=== PATIENT | male | born 1950 | race Caucasian/White ===

== ENCOUNTER 2016-05-05 10:31 | Emergency (ER) | payer OTHER, MEDICARE ==
--- NOTE | 2016-05-05 12:53 | DIAGNOSTIC IMAGING REPORT ---
PROCEDURE: XR CHEST 2 VIEW INDICATION: HEAVY SMOKER WITH DVTS TECHNIQUE: PA and lateral views. COMPARISON: None. FINDINGS: Lungs are clear. Heart and mediastinum are normal. Thorax is normal. IMPRESSION: 1. Negative chest.
--- NOTE | 2016-05-05 14:09 | ED CLINICAL REPORT ---
Clinical Report - Physicians/Mid Levels [facility] [address] [place] [address] 05/05/2016 10:32 Patient: RASHIDA ROB Time Seen: 11:19. Arrived- By private vehicle. Historian- patient. HISTORY OF PRESENT ILLNESS Chief Complaint: LOWER EXTREMITY PAIN. Severity is described as being .it has become recently worse. The quality is noted to be "pain". This started several days ago and is still present. It was gradual in onset and has been constant. Symptoms located in the area of the right leg. The patient has had moderate redness with red streaking. He has had mild swelling of the right lower leg. 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 He has been on warfarin for this. He also had an IVC filter placed in the past. Over the past several days he's had an area of redness on the inside of his right leg with extension up the medial aspect by his knee. He says that this is painful, describing a burning sensation. He was seen yesterday by a nurse practitioner who diagnosed him with superficial thrombophlebitis and apparently checked his INR and said that it was 2.5. However he says that the pain is worse. He denies chest pain no shortness of breath). Patient denies a recent injury. Similar symptoms previously: Many times. Recent medical care: The patient was seen recently at another facility in a clinic. Diagnosis: (superficial thrombophlebitis). REVIEW OF SYSTEMS No chills, fever, calf pain, chest pain or cough. No difficulty breathing, pedal edema, palpitations, abdominal pain or black stools. No bloody stools, constipation, diarrhea, nausea or vomiting. No urinary problems. All systems otherwise negative, except as recorded above. PAST HISTORY ( PCP Chris Mireles). Problems: DVT - Deep Venous Thrombosis. Lifestyle / Substance Problems. Additional Surgeries: Filter placed through groin for DVT. IVC filter placement. Knee Surgery. Shoulder Surgery. Medications: High chilesterol medication unkown of name . Warfarin Sodium Oral (Tablet 7.5 mg), daily. Allergies: No Known Drug Allergy. SOCIAL HISTORY No alcohol use. FAMILY HISTORY Denies family medical history. ADDITIONAL NOTES The nursing notes have been reviewed. PHYSICAL EXAM Vital Signs: 05/05/2016 10:57 BP: 122/77. HR: 65. RR: 18. O2 saturation: 97%. Temp: 98.5 F. Have been reviewed. Appearance: Alert. Eyes: Pupils equal, round and reactive to light. ENT: Pharynx normal. Neck: Normal inspection. Neck supple. CVS: Normal heart rate and rhythm. Heart sounds normal. Respiratory: No respiratory distress. Decreased air movement. No rales, rhonchi or wheezes. Abdomen: Soft and nontender. No organomegaly. Skin: Skin warm and dry. Extremities: Right thigh: moderate tenderness and mild swelling. Right leg: moderate erythema located in the medial aspect of upper leg. Mild edema of the right lower extremity. Mild right-sided calf tenderness. LABS, X-RAYS, AND EKG Laboratory Tests: CBC w Diff: (SKY: 05/05/2016 11:40) ( [facility] Final results Test Result Flag Units (Reference) WHITE BLOOD COUNT 7.7 K/uL (4.5-11.5) RED BLOOD COUNT 4.91 M/uL (4.50-5.90) HEMOGLOBIN 15.4 gm/dL (13.5-17.5) HEMATOCRIT 46.5 % (41.0-53.0) MEAN CELL VOLUME 95 fL (80-100) MEAN CORPUSCULAR HGB 31 pg (26-34) MEAN CORPUSCULAR HGB CONC 33 g/dL (31-37) RED CELL DISTRIBUTION WIDTH 14.2 % (11.6-14.8) PLATELET COUNT 151 K/uL (150-400) NEUTROPHIL % 67.3 % (50-75) LYMPH % 21.5 L % (25-40) MONO % 7.9 % (3-14) EOSINOPHIL % 2.5 % (0-4) BASOPHIL % 0.8 % (0-2) PT with INR: (SKY: 05/05/2016 11:40) ( [facility] 05/05/2016 12:08) Final results Test Result Flag Units (Reference) INR 2.1 H (0.8-1.2) Low Intensity Therapy: INR 1.5-2.0 PT range 18.5-23.1Mod.Intensity Therapy: INR 2.0-3.0 PT range 23.1-31.5High Intensity Therapy: INR 2.5-3.5 PT range 27.4-35.5High Intensity Therapy 2: INR 3.0-4.0 PT range 31.5-39.3 APTT 36 H SECONDS (24-34) CMP: (SKY: 05/05/2016 11:40) ( [facility] 05/05/2016 12:15) Final results Test Result Flag Units (Reference) GLUCOSE 108 mg/dL (70-110) BUN 14 mg/dL (7-18) CREATININE 0.9 mg/dL (0.6-1.3) Estimated GFR >60 mL/min Estimated GFR- >60 mL/min Note: Persistent reduction over 3 months in eGFR<60 mL/min/1.73 m2 defines CKD. Patients with eGFR values>=60 mL/min/1.73 m2 may also have CKD if evidence ofpersistent proteinuria. Additional information may be foundat www.kidney.org. SODIUM 141 mmol/L (136-145) POTASSIUM 3.9 mmol/L (3.5-5.1) CHLORIDE 105 mmol/L (98-107) CARBON DIOXIDE 26 mmol/L (21-32) CALCIUM 8.9 mg/dL (8.5-10.1) TOTAL PROTEIN 6.8 g/dL (6.4-8.2) ALBUMIN 3.6 g/dL (3.3-5.0) BILIRUBIN, TOTAL 0.3 mg/dL (0.0-1.0) ALKALINE PHOSPHATASE 60 U/L (46-116) AST (SGOT) 14 L U/L (15-37) ALT (SGPT) 24 U/L (12-78) . PROGRESS AND PROCEDURES Course of Care: Patient is stable. Discussed case with patient's primary care provider, (Aline). Reviewed test results and need for additional work-up. Agreed upon treatment plan and need for patient follow-up. Health care provider will see patient in office. Patient/family counseled. Old medical records reviewed. Disposition: Discharged. Condition: stable. CLINICAL IMPRESSION Deep venous thrombosis of the right proximal lower extremity. Superficial thrombophlebitis of the right leg. INSTRUCTIONS Apply ice for 20 minutes four times a day until better. Don't apply ice directly to skin and don't use while asleep. No driving or operating machinery while taking medication. Do not smoke- benefits of smoking cessation discussed (>3 -10 minutes). Seek medical help to quit smoking. (Discussed with Dr. Mccray whether or not she might benefit from being transitioned from warfarin to one of the newer anticoagulant medications as discussed). Warnings: Further evaluation is necessary. GENERAL WARNINGS: Return or contact your physician immediately if your condition worsens or changes unexpectedly, if not improving as expected, or if other problems arise. Your Current Medications: CONTINUE TAKING THE FOLLOWING MEDICATIONS: High chilesterol medication unkown of name *. Warfarin Sodium Oral : Tablet 7.5 mg, daily. Prescription Medications: Ultram 50 mg: take 1-2 orally every 6 hours as needed for pain. Dispense fifteen (15). No refills. Substitution is permissible. Understanding of the discharge instructions verbalized by patient and family. Follow-up with: Merrick Mireles MD, [facility], , [address], [address] Follow up Sunday in three days. Call for an appointment. (Electronically signed by Juan Jose Bates MD 05/05/2016 15:19)
--- NOTE | 2016-05-05 14:09 | ED CLINICAL REPORT ---
Clinical Report - Physicians/Mid Levels [facility] [address] [place] [address] 05/05/2016 10:32 Patient: RASHIDA ROB Time Seen: 11:19. Arrived- By private vehicle. Historian- patient. HISTORY OF PRESENT ILLNESS Chief Complaint: LOWER EXTREMITY PAIN. Severity is described as being .it has become recently worse. The quality is noted to be "pain". This started several days ago and is still present. It was gradual in onset and has been constant. Symptoms located in the area of the right leg. The patient has had moderate redness with red streaking. He has had mild swelling of the right lower leg. 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 He has been on warfarin for this. He also had an IVC filter placed in the past. Over the past several days he's had an area of redness on the inside of his right leg with extension up the medial aspect by his knee. He says that this is painful, describing a burning sensation. He was seen yesterday by a nurse practitioner who diagnosed him with superficial thrombophlebitis and apparently checked his INR and said that it was 2.5. However he says that the pain is worse. He denies chest pain no shortness of breath). Patient denies a recent injury. Similar symptoms previously: Many times. Recent medical care: The patient was seen recently at another facility in a clinic. Diagnosis: (superficial thrombophlebitis). REVIEW OF SYSTEMS No chills, fever, calf pain, chest pain or cough. No difficulty breathing, pedal edema, palpitations, abdominal pain or black stools. No bloody stools, constipation, diarrhea, nausea or vomiting. No urinary problems. All systems otherwise negative, except as recorded above. PAST HISTORY ( PCP Chris Mireles). Problems: DVT - Deep Venous Thrombosis. Lifestyle / Substance Problems. Additional Surgeries: Filter placed through groin for DVT. IVC filter placement. Knee Surgery. Shoulder Surgery. Medications: High chilesterol medication unkown of name . Warfarin Sodium Oral (Tablet 7.5 mg), daily. Allergies: No Known Drug Allergy. SOCIAL HISTORY No alcohol use. FAMILY HISTORY Denies family medical history. ADDITIONAL NOTES The nursing notes have been reviewed. PHYSICAL EXAM Vital Signs: 05/05/2016 10:57 BP: 122/77. HR: 65. RR: 18. O2 saturation: 97%. Temp: 98.5 F. Have been reviewed. Appearance: Alert. Eyes: Pupils equal, round and reactive to light. ENT: Pharynx normal. Neck: Normal inspection. Neck supple. CVS: Normal heart rate and rhythm. Heart sounds normal. Respiratory: No respiratory distress. Decreased air movement. No rales, rhonchi or wheezes. Abdomen: Soft and nontender. No organomegaly. Skin: Skin warm and dry. Extremities: Right thigh: moderate tenderness and mild swelling. Right leg: moderate erythema located in the medial aspect of upper leg. Mild edema of the right lower extremity. Mild right-sided calf tenderness. LABS, X-RAYS, AND EKG Laboratory Tests: CBC w Diff: (SKY: 05/05/2016 11:40) ( [facility] Final results Test Result Flag Units (Reference) WHITE BLOOD COUNT 7.7 K/uL (4.5-11.5) RED BLOOD COUNT 4.91 M/uL (4.50-5.90) HEMOGLOBIN 15.4 gm/dL (13.5-17.5) HEMATOCRIT 46.5 % (41.0-53.0) MEAN CELL VOLUME 95 fL (80-100) MEAN CORPUSCULAR HGB 31 pg (26-34) MEAN CORPUSCULAR HGB CONC 33 g/dL (31-37) RED CELL DISTRIBUTION WIDTH 14.2 % (11.6-14.8) PLATELET COUNT 151 K/uL (150-400) NEUTROPHIL % 67.3 % (50-75) LYMPH % 21.5 L % (25-40) MONO % 7.9 % (3-14) EOSINOPHIL % 2.5 % (0-4) BASOPHIL % 0.8 % (0-2) PT with INR: (SKY: 05/05/2016 11:40) ( [facility] 12:08) Final results Test Result Flag Units (Reference) INR 2.1 H (0.8-1.2) Low Intensity Therapy: INR 1.5-2.0 PT range 18.5-23.1Mod.Intensity Therapy: INR 2.0-3.0 PT range 23.1-31.5High Intensity Therapy: INR 2.5-3.5 PT range 27.4-35.5High Intensity Therapy 2: INR 3.0-4.0 PT range 31.5-39.3 APTT 36 H SECONDS (24-34) CMP: (SKY: 05/05/2016 11:40) ( MsgRcvd 05/05/2016 12:15) Final results Test Result Flag Units (Reference) GLUCOSE 108 mg/dL (70-110) BUN 14 mg/dL (7-18) CREATININE 0.9 mg/dL (0.6-1.3) Estimated GFR >60 mL/min Estimated GFR- >60 mL/min Note: Persistent reduction over 3 months in eGFR<60 mL/min/1.73 m2 defines CKD. Patients with eGFR values>=60 mL/min/1.73 m2 may also have CKD if evidence ofpersistent proteinuria. Additional information may be foundat www.kidney.org. SODIUM 141 mmol/L (136-145) POTASSIUM 3.9 mmol/L (3.5-5.1) CHLORIDE 105 mmol/L (98-107) CARBON DIOXIDE 26 mmol/L (21-32) CALCIUM 8.9 mg/dL (8.5-10.1) TOTAL PROTEIN 6.8 g/dL (6.4-8.2) ALBUMIN 3.6 g/dL (3.3-5.0) BILIRUBIN, TOTAL 0.3 mg/dL (0.0-1.0) ALKALINE PHOSPHATASE 60 U/L (46-116) AST (SGOT) 14 L U/L (15-37) ALT (SGPT) 24 U/L (12-78) . PROGRESS AND PROCEDURES Course of Care: Patient is stable. Discussed case with patient's primary care provider, (Aline). Reviewed test results and need for additional work-up. Agreed upon treatment plan and need for patient follow-up. Health care provider will see patient in office. Patient/family counseled. Old medical records reviewed. Disposition: Discharged. Condition: stable. CLINICAL IMPRESSION Deep venous thrombosis of the right proximal lower extremity. Superficial thrombophlebitis of the right leg. INSTRUCTIONS Apply ice for 20 minutes four times a day until better. Don't apply ice directly to skin and don't use while asleep. No driving or operating machinery while taking medication. Do not smoke- benefits of smoking cessation discussed (>3 -10 minutes). Seek medical help to quit smoking. (Discussed with Dr. Mccray whether or not she might benefit from being transitioned from warfarin to one of the newer anticoagulant medications as discussed). Warnings: Further evaluation is necessary. GENERAL WARNINGS: Return or contact your physician immediately if your condition worsens or changes unexpectedly, if not improving as expected, or if other problems arise. Your Current Medications: CONTINUE TAKING THE FOLLOWING MEDICATIONS: High chilesterol medication unkown of name *. Warfarin Sodium Oral : Tablet 7.5 mg, daily. Prescription Medications: Ultram 50 mg: take 1-2 orally every 6 hours as needed for pain. Dispense fifteen (15). No refills. Substitution is permissible. Understanding of the discharge instructions verbalized by patient and family. Follow-up with: Mrerick Mireles MD, [facility], , [address], [address] Follow up Sunday in three days. Call for an appointment. (Electronically signed by Juan Jose Bates MD 05/05/2016 15:19)
--- NOTE | 2016-05-05 14:10 | ED ORDER SUMMARY ---
..... Patient: RASHIDA ROB OrderSheet [facility] VisitID: [id number] [place] [address] 65y, M Registration Date/Time: 05/05/2016 ORDER SHEET Weight: 78.0 kg (stated) Allergies: No Known Drug Allergy GENERAL ORDERS: US Venous Right Urgent (11:30 05/05/2016 Karolyn HANEY) (Ack 11:34 Beatris) (16:06 LWhalen R.N.) CBC w Diff Urgent (11:05/05/2016 Karolyn HANEY) (Ack 11:34 Beatris) (11:38 KKnebel R.N.) CMP Urgent (11:05/05/2016 Karolyn HANEY) (Ack 11:34 Beatris) (11:38 KKnebel R.N.) PT with INR Urgent (11:05/05/2016 Karolyn HANEY) (Ack 11:34 Beatris) (11:38 EMMANUELnebel R.N.) PTT Urgent (11:05/05/2016 Karolyn HANEY) (Ack 11:34 Beatris) (11:38 EMMANUELnebel R.N.) Chest 2V Urgent (12:29 05/05/2016 Karolyn HANEY) (Ack 12:38 Beatris) (16:06 LWhalyadira R.N.) MEDICATION ORDERS: IV FLUIDS: IV Saline Lock (11:05/05/2016 Karolyn HANEY) (11:38 Angel R.N.) ORDER SHEET NOTES: [Electronically signed by Juan Jose Bates MD (15:19 05/05/2016)] [Electronically signed by Cory Costa R.N. (16:07 05/05/2016)] [Electronically locked/signed by Cory Costa R.N. (16:05/05/2016)]
--- NOTE | 2016-05-05 14:10 | ED NURSING NOTES ---
Clinical Report - Nurses [facility] [address] [place] [address] 05/05/2016 10:32 [id number] Triage time 10:59 May 05 2016. Acuity: LEVEL 3. Chief Complaint: RIGHT LOWER EXTREMITY PAIN, SWELLING and REDNESS. HELENE COMA SCORE: Helene Coma Scale: 15- eyes open spontaneously (4); best verbal response- oriented x 4 (5); best motor response- obeys commands (6). --11:05 Cory Costa R.N. 10:57 05/05/16. BP: 122/77. HR: 65. RR: 18. O2 saturation: 97%. Temp: 98.5 F. Pain level now 9/10. --11:05 Cory Costa R.N. Weight: 78 kg stated. Height/Length: 74 inches Per Patient. BMI: 22.1. --10:59 Cory Costa R.N. Medications Warfarin Sodium Oral (Tablet 7.5 mg), daily. --11:02 Cory Costa R.N. High chilesterol medication unkown of name . --11:03 Cory Costa R.N. Allergies No Known Drug Allergy. --11:03 Cory Costa R.N. History Arrived by private vehicle. Historian: patient. Primary physician (). No injury occurred. This occurred yesterday. ( Was diagnosed in the office yesterday with a DVT. The spot in question reddened over night and has became very painful with a red line coming from it and was told to go to the ER.). He has had swelling and redness. No fever, difficulty breathing, skin rash, itching or trouble walking. No weakness. 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 PAST MEDICAL HX: Deep vein thrombosis. Tetanus status: unknown. Immunizations: up-to-date. SOCIAL HX: Current every day heavy tobacco smoker- 1 pack per day. History of drug use: marijuana. No alcohol use. No infectious disease exposure. SELF HARM ASSESSMENT: A self harm assessment was performed. The patient answered "no" to the question "Have you recently felt down, depressed, or hopeless?" and "Do you have thoughts of harming or killing yourself?". FALL RISK ASSESSMENT: Fall risk assessment completed. No fall risk identified. NUTRITIONAL RISK ASSESSMENT: The nutritional risk assessment revealed no deficiencies. FUNCTIONAL ASSESSMENT: Functional assessment: no impairments noted. LEARNING NEEDS ASSESSMENT: The learning needs assessment revealed no barriers. ABUSE ASSESSMENT: Abuse assessment: (yes) The patient was asked "Do you feel safe in your home?". SKIN INTEGRITY ASSESSMENT: Skin integrity risk assessment completed. No skin integrity risk identified. --11:05 Cory Costa R.N. PROBLEMS: Lifestyle / Substance Problems. --11:04 Cory Costa R.N. ADDITIONAL SURGERIES: Filter placed through groin for DVT. Knee Surgery. Shoulder Surgery. --11:04 Cory Costa R.N. Interventions ID band on patient. --11:05 Cory Costa R.N. PHYSICAL ASSESSMENT Ambulatory to room. GENERAL / NEURO / PSYCH: Oriented X 4. Alert. Appears in no acute distress. EXTREMITIES: Extremity pulses are within normal limits. Extremities exhibit normal ROM. Neuro-vascular status intact to the extremity. No lower extremity edema. Right leg: tenderness, swelling and erythema. ( Limping gait r/t pain). SKIN: Skin intact. Skin is warm and dry. --11:06 Cory Costa R.N. NURSING PROGRESS NOTES The initial plan of care for this patient includes an assessment with efforts to address patient positioning and appropriate ambient lighting; mobility impairments. Pulse oximeter and NIBP monitor placed on patient. Reassurance given. Call light placed in reach. Side rails up x 1. Bed placed in lowest position. Brakes of bed on. --11:06 Cory Costa R.N. 11:37 05/05/2016 Site #1 started via IV in the right antecubital space with an 20g angiocath, with good blood return; one attempt. Blood drawn: rainbow set. Labeled in the presence of the patient and sent to the lab. Saline lock flushed with 10 mL saline. --11:37 Jolanta Gonsalez R.N. Patient walked back to ED from radiology. (12:39 May 05 2016). --12:40 Jolanta Gonsalez R.N. 12:39 05/05/16. BP: 124/70. HR: 65. O2 saturation: 96%. Pain level now: 10. --12:40 Jolanta Gonsalez R.N. 14:00 05/05/2016 IV Saline Lock Drip IV Discontinued: upon discharge. IV patency established. IV site checked: no pain, redness, or swelling. IV flushed thoroughly. --16:06 Cory Costa R.N. DISPOSITION / DISCHARGE Departure time: 14:30 May 05 2016. Condition at departure: improved. No learning barriers present. Discharge instructions provided and reviewed with the patient. Reviewed warnings. Reviewed medication(s). Treatments reviewed. Reviewed referrals. Patient verbalized understanding. Written instructions provided in Polish. The patient was discharged home and accompanied by compliance project manager. He left the Emergency Department ambulatory and via private vehicle. Desizing Machine Back Tender driving. --16:05 Cory Costa R.N. 16:04 05/05/16. BP: 118/72. HR: 84. RR: 18. O2 saturation: 98%. Temp: 98.6 F. Pain level now 10. --16:05 Cory Costa R.N. Locked/Released at 05/05/2016 16:07 by Cory Costa R.N.
--- NOTE | 2016-05-05 14:10 | ED NURSING NOTES ---
Clinical Report - Nurses [facility] [address] [place] [address] 05/05/2016 10:32 Patient: RASHIDA ROB [place] Llct#: [id number] TRIAGE Triage time 10:59 May 05 2016. Acuity: LEVEL 3. Chief Complaint: RIGHT LOWER EXTREMITY PAIN, SWELLING and REDNESS. HELENE COMA SCORE: Helene Coma Scale: 15- eyes open spontaneously (4); best verbal response- oriented x 4 (5); best motor response- obeys commands (6). --11:05 Cory Costa R.N. 10:57 05/05/16. BP: 122/77. HR: 65. RR: 18. O2 saturation: 97%. Temp: 98.5 F. Pain level now 9/10. --11:05 Cory Costa R.N. Weight: 78 kg stated. Height/Length: 74 inches Per Patient. BMI: 22.1. --10:59 Cory Costa R.N. Medications Warfarin Sodium Oral (Tablet 7.5 mg), daily. --11:02 Cory Costa R.N. High chilesterol medication unkown of name . --11:03 Cory Costa R.N. Allergies No Known Drug Allergy. --11:03 Cory Costa R.N. History Arrived by private vehicle. Historian: patient. Primary physician (). No injury occurred. This occurred yesterday. ( Was diagnosed in the office yesterday with a DVT. The spot in question reddened over night and has became very painful with a red line coming from it and was told to go to the ER.). He has had swelling and redness. No fever, difficulty breathing, skin rash, itching or trouble walking. No weakness. 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 PAST MEDICAL HX: Deep vein thrombosis. Tetanus status: unknown. Immunizations: up-to-date. SOCIAL HX: Current every day heavy tobacco smoker- 1 pack per day. History of drug use: marijuana. No alcohol use. No infectious disease exposure. SELF HARM ASSESSMENT: A self harm assessment was performed. The patient answered "no" to the question "Have you recently felt down, depressed, or hopeless?" and "Do you have thoughts of harming or killing yourself?". FALL RISK ASSESSMENT: Fall risk assessment completed. No fall risk identified. NUTRITIONAL RISK ASSESSMENT: The nutritional risk assessment revealed no deficiencies. FUNCTIONAL ASSESSMENT: Functional assessment: no impairments noted. LEARNING NEEDS ASSESSMENT: The learning needs assessment revealed no barriers. ABUSE ASSESSMENT: Abuse assessment: (yes) The patient was asked "Do you feel safe in your home?". SKIN INTEGRITY ASSESSMENT: Skin integrity risk assessment completed. No skin integrity risk identified. --11:05 Cory Costa R.N. PROBLEMS: Lifestyle / Substance Problems. --11:04 Cory Costa R.N. ADDITIONAL SURGERIES: Filter placed through groin for DVT. Knee Surgery. Shoulder Surgery. --11:04 Cory Costa R.N. Interventions ID band on patient. --11:05 Cory Costa R.N. PHYSICAL ASSESSMENT Ambulatory to room. GENERAL / NEURO / PSYCH: Oriented X 4. Alert. Appears in no acute distress. EXTREMITIES: Extremity pulses are within normal limits. Extremities exhibit normal ROM. Neuro-vascular status intact to the extremity. No lower extremity edema. Right leg: tenderness, swelling and erythema. ( Limping gait r/t pain). SKIN: Skin intact. Skin is warm and dry. --11:06 Cory Costa R.N. NURSING PROGRESS NOTES The initial plan of care for this patient includes an assessment with efforts to address patient positioning and appropriate ambient lighting; mobility impairments. Pulse oximeter and NIBP monitor placed on patient. Reassurance given. Call light placed in reach. Side rails up x 1. Bed placed in lowest position. Brakes of bed on. --11:06 Cory Costa R.N. 11:37 05/05/2016 Site #1 started via IV in the right antecubital space with an 20g angiocath, with good blood return; one attempt. Blood drawn: rainbow set. Labeled in the presence of the patient and sent to the lab. Saline lock flushed with 10 mL saline. --11:37 Jolanta Gonsalez R.N. Patient walked back to ED from radiology. (12:39 May 05 2016). --12:40 Jolanta Gonsalez R.N. 12:39 05/05/16. BP: 124/70. HR: 65. O2 saturation: 96%. Pain level now: 10. --12:40 Jolanta Gonsalez R.N. 14:00 05/05/2016 IV Saline Lock Drip IV Discontinued: upon discharge. IV patency established. IV site checked: no pain, redness, or swelling. IV flushed thoroughly. --16:06 Cory Costa R.N. DISPOSITION / DISCHARGE Departure time: 14:30 May 05 2016. Condition at departure: improved. No learning barriers present. Discharge instructions provided and reviewed with the patient. Reviewed warnings. Reviewed medication(s). Treatments reviewed. Reviewed referrals. Patient verbalized understanding. Written instructions provided in Italian. The patient was discharged home and accompanied by stave log ripsaw operator. He left the Emergency Department ambulatory and via private vehicle. Diabetes Territory Manager driving. --16:05 Cory Costa R.N. 16:04 05/05/16. BP: 118/72. HR: 84. RR: 18. O2 saturation: 98%. Temp: 98.6 F. Pain level now 10. --16:05 Cory Costa R.N. Locked/Released at 05/05/2016 16:07 by Cory Costa R.N.
--- NOTE | 2016-05-05 14:10 | ED ORDER SUMMARY ---
..... Patient: RASHIDA ROB OrderSheet [facility] VisitID: [id number] [place] [address] 65y, M Registration Date/Time: 05/05/2016 ORDER SHEET Weight: 78.0 kg (stated) Allergies: No Known Drug Allergy GENERAL ORDERS: US Venous Right Urgent (11:30 05/05/2016 Karolyn HANEY) (Ack 11:34 Beatris) (16:06 LWhalen R.N.) CBC w Diff Urgent (11:05/05/2016 Karolyn HANEY) (Ack 11:34 Beatris) (11:38 KKnebel R.N.) CMP Urgent (11:05/05/2016 Karolyn HANEY) (Ack 11:34 Beatris) (11:38 KKnebel R.N.) PT with INR Urgent (11:05/05/2016 Karolyn HANEY) (Ack 11:34 Beatris) (11:38 EMMANUELnebel R.N.) PTT Urgent (11:05/05/2016 Karolyn HANEY) (Ack 11:34 Beatris) (11:38 EMMANUELnebel R.N.) Chest 2V Urgent (12:29 05/05/2016 Karolyn HANEY) (Ack 12:38 Beatris) (16:06 LWhalyadira R.N.) MEDICATION ORDERS: IV FLUIDS: IV Saline Lock (11:05/05/2016 Karolyn HANEY) (11:38 Angel R.N.) ORDER SHEET NOTES: [Electronically signed by Juan Jose Bates MD (15:19 05/05/2016)] [Electronically signed by Cory Costa R.N. (16:07 05/05/2016)] [Electronically locked/signed by Cory Costa R.N. (16:05/05/2016)]
--- NOTE | 2016-05-05 14:49 | DIAGNOSTIC IMAGING REPORT ---
PROCEDURE: US VENOUS - RIGHT EXT INDICATION: PAIN TECHNIQUE: Duplex sonography of the deep venous system in the right lower extremity was performed. Compression and augmentation techniques were used. COMPARISON: 09/21/2011 FINDINGS: The common femoral vein and proximal greater saphenous vein appear compressible and patent with appropriate phasicity and color flow. There is chronic-appearing nonocclusive clot and is diminutive superficial femoral vein for a nearly the entire segment. 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 Popliteal vein is widely patent with normal augmentation. In the patient's area of calf redness and pain, there are enlarged, lobulated subcutaneous heterogeneously hypoechoic varices with intrinsic echogenic material which is noncompressible. There is no vascular flow detected within this structures. Deep calf veins appear patent. IMPRESSION: 1. 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 2. 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 3. The patient's area of pain corresponds to occlusive superficial thrombophlebitis in a varicosity.
--- NOTE | 2016-05-05 16:07 | ED DISCHARGE INSTRUCTIONS ---
Patient: RASHIDA ROB General Instructions VisitID: [id number] [place] [address] 65y, M Registration Date/Time: 05/05/2016 Deep venous thrombosis of the right proximal lower extremity. Superficial thrombophlebitis of the right leg. INSTRUCTIONS Apply ice for 20 minutes four times a day until better. Don't apply ice directly to skin and don't use while asleep. No driving or operating machinery while taking medication. Do not smoke- benefits of smoking cessation discussed (>3 -10 minutes). Seek medical help to quit smoking. (Discussed with Dr. Mccray whether or not she might benefit from being transitioned from warfarin to one of the newer anticoagulant medications as discussed). Warnings: Further evaluation is necessary. GENERAL WARNINGS: Return or contact your physician immediately if your condition worsens or changes unexpectedly, if not improving as expected, or if other problems arise. Your Current Medications: CONTINUE TAKING THE FOLLOWING MEDICATIONS: High chilesterol medication unkown of name *. Warfarin Sodium Oral : Tablet 7.5 mg, daily. Prescription Medications: Ultram 50 mg: take 1-2 orally every 6 hours as needed for pain. Dispense fifteen (15). No refills. Substitution is permissible. Understanding of the discharge instructions verbalized by patient and family. Follow-up with: Merrick Mireles MD, [facility], , [address], [address], [place], [address] Follow up Sunday in three days. Call for an appointment. ADDITIONAL INFORMATION Deep Vein Thrombosis Deep Vein Thrombosis (DVT) means there is a blood clot in a deep vein of the leg. This may cause redness, swelling, warmth and pain of the leg. If the blood clot grows larger, a piece may break off and go to the lungs (pulmonary embolus) or to the brain (stroke). Factors that increase risk of a DVT include: overweight, smoking, use of estrogen replacement therapy. Prolonged periods without movement (such as long distance travel, wearing a fracture cast, and prolonged bed rest after surgery or during an illness) also increases the risk of a DVT. Home Care: Stay off the affected leg as much as possible during the next week. When sitting or lying down, keep the leg elevated. Compression stockings may be advised to improve blood flow in the lower legs. When resting, move your ankles, toes and knees frequently to stimulate blood flow. You will be prescribed an anti-coagulant medicine (pills or shots). Take it exactly as directed. Follow Up with your doctor as advised. NOTE: A radiologist will review any X-rays that were taken. We will notify you of any new findings that may affect your care. Get Prompt Medical Attention if any of the following occur: Shortness of breath or painful breathing Chest pain, repeated cough or coughing up blood Fever of 100.4F (38C) or higher, or as directed by your healthcare provider Increasing swelling or increasing pain in the leg Spreading redness Unexpected bleeding (nose, gums, cuts, urinary tract, vagina, rectum) Phlebitis, Superficial Phlebitis is the name for inflammation of a vein. This results in local redness, swelling, warmth and pain. This may occur after medicine has been given by vein as a result of the irritating effect of the medicine. It can also occur as a result of IV drug use. Superficial phlebitis involves only those veins close to the surface. There is no danger of a clot traveling to the lung or brain, unlike deep blood clots of the legs. Therefore, this condition can be safely treated at home. Home Care: Heat is helpful. Use a heating pad or soak the inflamed part in a hot tub for 10 minutes at a time. You may use ibuprofen (Motrin, Advil) to control pain, unless another medicine was prescribed. [ NOTE : If you have chronic kidney disease or ever had a stomach ulcer or GI bleeding, talk with your doctor before using these medicines.] If Your Leg Is Affected: Unless pain is severe, you may walk. It is important to sit often and elevate the leg. Avoid prolonged sitting or standing. Use support hose or an elastic wrap to compress the leg and reduce swelling. If Your Arm Is Affected: Elevate the arm. If you were given a sling, take your arm out from time to time and move it around to increase the circulation. Use an elastic wrap if there is a lot of swelling. Follow Up with your doctor as advised. Get Prompt Medical Attention if any of the following occur: Shortness of breath or painful breathing Chest pain or cough Fever of 100.4F (38C) or higher, or as directed by your healthcare provider Increasing swelling or pain Spreading redness How To Quit Smoking Smoking is one of the hardest habits to break. About half of all those who have ever smoked have been able to quit, and most of those (about 70%) who still smoke want to quit. Here are some of the best ways to stop smoking. Keep Trying: It takes most smokers about 8 tries before they are finally able to fully quit. So, the more often you try and fail, the better your chance of quitting the next time! So, don't give up! Go Cold [place]: Most ex-smokers quit cold turkey. Trying to cut back gradually doesn't seem to work as well, perhaps because it continues the smoking habit. Also, it is possible to fool yourself by inhaling more while smoking fewer cigarettes. This results in the same amount of nicotine in your body! Get Support: Support programs can make an important difference, especially for the heavy smoker. These groups offer lectures, methods to change your behavior and peer support. Call the free national Quitline for more information. 484-RGGR-SRI (661-060-3893). Low-cost or free programs are offered by many hospitals, local chapters of the [place] [employer] (805-220-6265) and the [employer] (318-351-5714). Support at home is important too. Non-smokers can help by offering praise and encouragement. If the smoker fails to quit, encourage them to try again! Kkhz-Urv-Blrewmh Medicines: For those who can't quit on their own, Nicotine Replacement Therapy (NRT) may make quitting much easier. Certain aids such as the nicotine patch, gum and lozenge are available without a prescription. However, it is best to use these under the guidance of your doctor. The skin patch provides a steady supply of nicotine to the body. Nicotine gum and lozenge gives temporary bursts of low levels of nicotine. Both methods take the edge off the craving for cigarettes. WARNING: If you feel symptoms of nicotine overdose, such as nausea, vomiting, dizziness, weakness, or fast heartbeat, stop using these and see your doctor. Prescription Medicines: After evaluating your smoking patterns and prior attempts at quitting, your doctor may offer a prescription medicine such as bupropion (Zyban, Wellbutrin), varenicline (Chantix, Champix), a niocotine inhaler or nasal spray. Each has its unique advantage and side effects which your doctor can review with you. Health Benefits Of Quitting: The benefits of quitting start right away and keep improving the longer you go without smokin minutes: blood pressure and pulse return to normal 8 hours: oxygen levels return to normal 2 days: ability to smell and taste begins to improve as damaged nerves start to regrow 2-3 weeks: circulation and lung function improves 1-9 months: decreased cough, congestion and shortness of breath; less tired 1 year: risk of heart attack decreases by half 5 years: risk of lung cancer decreases by half; risk of stroke becomes the same as a non-smoker For information about how to quit smoking, visit the following links: National Cancer Reva , Clearing the Air, Quit Smoking Today - an online booklet. http://www.smokefree.gov/pubs/clearing_the_air.pdf Smokefree.gov http://smokefree.gov/ QuitNet http://www.quitnet.com/ Tramadol Hydrochloride Oral tablet What is this medicine? TRAMADOL (TRA ma dole) is a pain reliever. It is used to treat moderate to severe pain in adults. How should I use this medicine? Take this medicine by mouth with a full glass of water. Follow the directions on the prescription label. If the medicine upsets your stomach, take it with food or milk. Do not take more medicine than you are told to take. Talk to your rivet hole machine operator regarding the use of this medicine in children. Special care may be needed. What side effects may I notice from receiving this medicine? Side effects that you should report to your doctor or health rn coronary care unit as soon as possible: allergic reactions like skin rash, itching or hives, swelling of the face, lips, or tongue breathing difficulties, wheezing confusion itching light headedness or fainting spells redness, blistering, peeling or loosening of the skin, including inside the mouth seizures Side effects that usually do not require medical attention (report to your doctor or health rn coronary care unit if they continue or are bothersome): constipation dizziness drowsiness headache nausea, vomiting What may interact with this medicine? Do not take this medicine with any of the following medications: MAOIs like Carbex, Eldepryl, Marplan, Nardil, and Parnate This medicine may also interact with the following medications: alcohol or medicines that contain alcohol antihistamines benzodiazepines bupropion carbamazepine or oxcarbazepine clozapine cyclobenzaprine digoxin furazolidone linezolid medicines for depression, anxiety, or psychotic disturbances medicines for migraine headache like almotriptan, eletriptan, frovatriptan, naratriptan, rizatriptan, sumatriptan, zolmitriptan medicines for pain like pentazocine, buprenorphine, butorphanol, meperidine, nalbuphine, and propoxyphene medicines for sleep muscle relaxants naltrexone phenobarbital phenothiazines like perphenazine, thioridazine, chlorpromazine, mesoridazine, fluphenazine, prochlorperazine, promazine, and trifluoperazine procarbazine warfarin What if I miss a dose? If you miss a dose, take it as soon as you can. If it is almost time for your next dose, take only that dose. Do not take double or extra doses. Where should I keep my medicine? Keep out of the reach of children. Store at room temperature between 15 and 30 degrees C (59 and 86 degrees F). Keep container tightly closed. Throw away any unused medicine after the expiration date. What should I tell my health care provider before I take this medicine? They need to know if you have any of these conditions: brain tumor depression drug abuse or addiction head injury if you frequently drink alcohol containing drinks kidney disease or trouble passing urine liver disease lung disease, asthma, or breathing problems seizures or epilepsy suicidal thoughts, plans, or attempt; a previous suicide attempt by you or a family member an unusual or allergic reaction to tramadol, codeine, other medicines, foods, dyes, or preservatives or trying to get breast-feeding What should I watch for while using this medicine? Tell your doctor or health rn coronary care unit if your pain does not go away, if it gets worse, or if you have new or a different type of pain. You may develop tolerance to the medicine. Tolerance means that you will need a higher dose of the medicine for pain relief. Tolerance is normal and is expected if you take this medicine for a long time. Do not suddenly stop taking your medicine because you may develop a severe reaction. Your body becomes used to the medicine. This does NOT mean you are addicted. Addiction is a behavior related to getting and using a drug for a non-medical reason. If you have pain, you have a medical reason to take pain medicine. Your doctor will tell you how much medicine to take. If your doctor wants you to stop the medicine, the dose will be slowly lowered over time to avoid any side effects. You may get drowsy or dizzy. Do not drive, use machinery, or do anything that needs mental alertness until you know how this medicine affects you. Do not stand or sit up quickly, especially if you are an older patient. This reduces the risk of dizzy or fainting spells. Alcohol can increase or decrease the effects of this medicine. Avoid alcoholic drinks. You may have constipation. Try to have a bowel movement at least every 2 to 3 days. If you do not have a bowel movement for 3 days, call your doctor or health rn coronary care unit. Your mouth may get dry. Chewing sugarless gum or sucking hard candy, and drinking plenty of water may help. Contact your doctor if the problem does not go away or is severe. You have been given the following additional information: DVT Thrombophlebitis, Superficial Smoking Cessation Tramadol Hydrochloride Oral tablet No driving or operating machinery while taking medication. (Electronically signed by Juan Jose Bates MD 05/05/2016 15:19)
--- NOTE | 2016-05-05 16:07 | ED DISCHARGE INSTRUCTIONS ---
Patient: RASHDIA ROB General Instructions [facility] VisitID: [id number] [place] [address] 65y, M Registration Date/Time: 05/05/2016 Deep venous thrombosis of the right proximal lower extremity. Superficial thrombophlebitis of the right leg. INSTRUCTIONS Apply ice for 20 minutes four times a day until better. Don't apply ice directly to skin and don't use while asleep. No driving or operating machinery while taking medication. Do not smoke- benefits of smoking cessation discussed (>3 -10 minutes). Seek medical help to quit smoking. (Discussed with Dr. Mccray whether or not she might benefit from being transitioned from warfarin to one of the newer anticoagulant medications as discussed). Warnings: Further evaluation is necessary. GENERAL WARNINGS: Return or contact your physician immediately if your condition worsens or changes unexpectedly, if not improving as expected, or if other problems arise. Your Current Medications: CONTINUE TAKING THE FOLLOWING MEDICATIONS: High chilesterol medication unkown of name *. Warfarin Sodium Oral : Tablet 7.5 mg, daily. Prescription Medications: Ultram 50 mg: take 1-2 orally every 6 hours as needed for pain. Dispense fifteen (15). No refills. Substitution is permissible. Understanding of the discharge instructions verbalized by patient and family. Follow-up with: Merrick Mireles MD, [facility], , [address], [address], [place], [address] Follow up Sunday in three days. Call for an appointment. ADDITIONAL INFORMATION Deep Vein Thrombosis Deep Vein Thrombosis (DVT) means there is a blood clot in a deep vein of the leg. This may cause redness, swelling, warmth and pain of the leg. If the blood clot grows larger, a piece may break off and go to the lungs (pulmonary embolus) or to the brain (stroke). Factors that increase risk of a DVT include: overweight, smoking, use of estrogen replacement therapy. Prolonged periods without movement (such as long distance travel, wearing a fracture cast, and prolonged bed rest after surgery or during an illness) also increases the risk of a DVT. Home Care: Stay off the affected leg as much as possible during the next week. When sitting or lying down, keep the leg elevated. Compression stockings may be advised to improve blood flow in the lower legs. When resting, move your ankles, toes and knees frequently to stimulate blood flow. You will be prescribed an anti-coagulant medicine (pills or shots). Take it exactly as directed. Follow Up with your doctor as advised. NOTE: A radiologist will review any X-rays that were taken. We will notify you of any new findings that may affect your care. Get Prompt Medical Attention if any of the following occur: Shortness of breath or painful breathing Chest pain, repeated cough or coughing up blood Fever of 100.4F (38C) or higher, or as directed by your healthcare provider Increasing swelling or increasing pain in the leg Spreading redness Unexpected bleeding (nose, gums, cuts, urinary tract, vagina, rectum) Phlebitis, Superficial Phlebitis is the name for inflammation of a vein. This results in local redness, swelling, warmth and pain. This may occur after medicine has been given by vein as a result of the irritating effect of the medicine. It can also occur as a result of IV drug use. Superficial phlebitis involves only those veins close to the surface. There is no danger of a clot traveling to the lung or brain, unlike deep blood clots of the legs. Therefore, this condition can be safely treated at home. Home Care: Heat is helpful. Use a heating pad or soak the inflamed part in a hot tub for 10 minutes at a time. You may use ibuprofen (Motrin, Advil) to control pain, unless another medicine was prescribed. [ NOTE : If you have chronic kidney disease or ever had a stomach ulcer or GI bleeding, talk with your doctor before using these medicines.] If Your Leg Is Affected: Unless pain is severe, you may walk. It is important to sit often and elevate the leg. Avoid prolonged sitting or standing. Use support hose or an elastic wrap to compress the leg and reduce swelling. If Your Arm Is Affected: Elevate the arm. If you were given a sling, take your arm out from time to time and move it around to increase the circulation. Use an elastic wrap if there is a lot of swelling. Follow Up with your doctor as advised. Get Prompt Medical Attention if any of the following occur: Shortness of breath or painful breathing Chest pain or cough Fever of 100.4F (38C) or higher, or as directed by your healthcare provider Increasing swelling or pain Spreading redness How To Quit Smoking Smoking is one of the hardest habits to break. About half of all those who have ever smoked have been able to quit, and most of those (about 70%) who still smoke want to quit. Here are some of the best ways to stop smoking. Keep Trying: It takes most smokers about 8 tries before they are finally able to fully quit. So, the more often you try and fail, the better your chance of quitting the next time! So, don't give up! Go Cold [place]: Most ex-smokers quit cold turkey. Trying to cut back gradually doesn't seem to work as well, perhaps because it continues the smoking habit. Also, it is possible to fool yourself by inhaling more while smoking fewer cigarettes. This results in the same amount of nicotine in your body! Get Support: Support programs can make an important difference, especially for the heavy smoker. These groups offer lectures, methods to change your behavior and peer support. Call the free national Quitline for more information. 076-EGKT-HAS (714-221-6653). Low-cost or free programs are offered by many hospitals, local chapters of the [place] [employer] (472-691-4436) and the [place] [employer] (729-924-0567). Support at home is important too. Non-smokers can help by offering praise and encouragement. If the smoker fails to quit, encourage them to try again! Nmsl-Urt-Jwxxgum Medicines: For those who can't quit on their own, Nicotine Replacement Therapy (NRT) may make quitting much easier. Certain aids such as the nicotine patch, gum and lozenge are available without a prescription. However, it is best to use these under the guidance of your doctor. The skin patch provides a steady supply of nicotine to the body. Nicotine gum and lozenge gives temporary bursts of low levels of nicotine. Both methods take the edge off the craving for cigarettes. WARNING: If you feel symptoms of nicotine overdose, such as nausea, vomiting, dizziness, weakness, or fast heartbeat, stop using these and see your doctor. Prescription Medicines: After evaluating your smoking patterns and prior attempts at quitting, your doctor may offer a prescription medicine such as bupropion (Zyban, Wellbutrin), varenicline (Chantix, Champix), a niocotine inhaler or nasal spray. Each has its unique advantage and side effects which your doctor can review with you. Health Benefits Of Quitting: The benefits of quitting start right away and keep improving the longer you go without smokin minutes: blood pressure and pulse return to normal 8 hours: oxygen levels return to normal 2 days: ability to smell and taste begins to improve as damaged nerves start to regrow 2-3 weeks: circulation and lung function improves 1-9 months: decreased cough, congestion and shortness of breath; less tired 1 year: risk of heart attack decreases by half 5 years: risk of lung cancer decreases by half; risk of stroke becomes the same as a non-smoker For information about how to quit smoking, visit the following links: National Cancer [place] , Clearing the Air, Quit Smoking Today - an online booklet. http://www.smokefree.gov/pubs/clearing_the_air.pdf Smokefree.gov http://smokefree.gov/ QuitNet http://www.quitnet.com/ Tramadol Hydrochloride Oral tablet What is this medicine? TRAMADOL (TRA ma dole) is a pain reliever. It is used to treat moderate to severe pain in adults. How should I use this medicine? Take this medicine by mouth with a full glass of water. Follow the directions on the prescription label. If the medicine upsets your stomach, take it with food or milk. Do not take more medicine than you are told to take. Talk to your sailing officer regarding the use of this medicine in children. Special care may be needed. What side effects may I notice from receiving this medicine? Side effects that you should report to your doctor or health campground caretaker as soon as possible: allergic reactions like skin rash, itching or hives, swelling of the face, lips, or tongue breathing difficulties, wheezing confusion itching light headedness or fainting spells redness, blistering, peeling or loosening of the skin, including inside the mouth seizures Side effects that usually do not require medical attention (report to your doctor or health campground caretaker if they continue or are bothersome): constipation dizziness drowsiness headache nausea, vomiting What may interact with this medicine? Do not take this medicine with any of the following medications: MAOIs like Carbex, Eldepryl, Marplan, Nardil, and Parnate This medicine may also interact with the following medications: alcohol or medicines that contain alcohol antihistamines benzodiazepines bupropion carbamazepine or oxcarbazepine clozapine cyclobenzaprine digoxin furazolidone linezolid medicines for depression, anxiety, or psychotic disturbances medicines for migraine headache like almotriptan, eletriptan, frovatriptan, naratriptan, rizatriptan, sumatriptan, zolmitriptan medicines for pain like pentazocine, buprenorphine, butorphanol, meperidine, nalbuphine, and propoxyphene medicines for sleep muscle relaxants naltrexone phenobarbital phenothiazines like perphenazine, thioridazine, chlorpromazine, mesoridazine, fluphenazine, prochlorperazine, promazine, and trifluoperazine procarbazine warfarin What if I miss a dose? If you miss a dose, take it as soon as you can. If it is almost time for your next dose, take only that dose. Do not take double or extra doses. Where should I keep my medicine? Keep out of the reach of children. Store at room temperature between 15 and 30 degrees C (59 and 86 degrees F). Keep container tightly closed. Throw away any unused medicine after the expiration date. What should I tell my health care provider before I take this medicine? They need to know if you have any of these conditions: brain tumor depression drug abuse or addiction head injury if you frequently drink alcohol containing drinks kidney disease or trouble passing urine liver disease lung disease, asthma, or breathing problems seizures or epilepsy suicidal thoughts, plans, or attempt; a previous suicide attempt by you or a family member an unusual or allergic reaction to tramadol, codeine, other medicines, foods, dyes, or preservatives or trying to get breast-feeding What should I watch for while using this medicine? Tell your doctor or health campground caretaker if your pain does not go away, if it gets worse, or if you have new or a different type of pain. You may develop tolerance to the medicine. Tolerance means that you will need a higher dose of the medicine for pain relief. Tolerance is normal and is expected if you take this medicine for a long time. Do not suddenly stop taking your medicine because you may develop a severe reaction. Your body becomes used to the medicine. This does NOT mean you are addicted. Addiction is a behavior related to getting and using a drug for a non-medical reason. If you have pain, you have a medical reason to take pain medicine. Your doctor will tell you how much medicine to take. If your doctor wants you to stop the medicine, the dose will be slowly lowered over time to avoid any side effects. You may get drowsy or dizzy. Do not drive, use machinery, or do anything that needs mental alertness until you know how this medicine affects you. Do not stand or sit up quickly, especially if you are an older patient. This reduces the risk of dizzy or fainting spells. Alcohol can increase or decrease the effects of this medicine. Avoid alcoholic drinks. You may have constipation. Try to have a bowel movement at least every 2 to 3 days. If you do not have a bowel movement for 3 days, call your doctor or health campground caretaker. Your mouth may get dry. Chewing sugarless gum or sucking hard candy, and drinking plenty of water may help. Contact your doctor if the problem does not go away or is severe. You have been given the following additional information: DVT Thrombophlebitis, Superficial Smoking Cessation Tramadol Hydrochloride Oral tablet No driving or operating machinery while taking medication. (Electronically signed by Juan Jose Bates MD 05/05/2016 15:19)
--- NOTE | 2016-05-05 16:07 | ED MED RECONCILIATION SUMMARY ---
Patient: RASHIDA ROB Medication Reconciliation Report [facility] VisitID: [id number] [address] [place] [place] [address] 65y, M Registration Date/Time: 05/05/2016 Weight: 78.0 kg Height/Length: 74 in. BMI: 22.1 ALLERGIES: No Known Drug Allergy The patient's Home Medications are listed below: CONTINUE TAKING THE FOLLOWING MEDICATIONS: High chilesterol medication unkown of name Warfarin Sodium Oral (7.5 mg), daily The source(s) of the original Home Medication information: Not obtained. The following Medications were given to the patient in the Emergency Department: None. The following Medications were prescribed to the patient: Ultram 50 mg: take 1-2 orally every 6 hours as needed for pain. Dispense fifteen (15). No refills. Substitution is permissible. -- Juan Jose Bates MD
--- NOTE | 2016-05-05 16:07 | ED MAR SUMMARY ---
..... Medication Administration Record [facility] [address] [place], [place] [id number] Patient: RASHIDA ROB Visit ID: [id number] 65y, M Weight: 78.0 kg Height/Length: 74 in BMI: 22.1 ALLERGIES: No Known Drug Allergy
--- NOTE | 2016-05-05 16:07 | ED MAR SUMMARY ---
..... Medication Administration Record [facility] [address] [place], [place] [id number] Patient: RASHIDA ROB Visit ID: [id number] 65y, M Weight: 78.0 kg Height/Length: 74 in BMI: 22.1 ALLERGIES: No Known Drug Allergy
--- NOTE | 2016-05-05 16:07 | ED MED RECONCILIATION SUMMARY ---
Patient: RASHIDA ROB Medication Reconciliation Report [facility] VisitID: [id number] [address] [place] [place] [address] 65y, M Registration Date/Time: 05/05/2016 Weight: 78.0 kg Height/Length: 74 in. BMI: 22.1 ALLERGIES: No Known Drug Allergy The patient's Home Medications are listed below: CONTINUE TAKING THE FOLLOWING MEDICATIONS: High chilesterol medication unkown of name Warfarin Sodium Oral (7.5 mg), daily The source(s) of the original Home Medication information: Not obtained. The following Medications were given to the patient in the Emergency Department: None. The following Medications were prescribed to the patient: Ultram 50 mg: take 1-2 orally every 6 hours as needed for pain. Dispense fifteen (15). No refills. Substitution is permissible. -- Juan Jose Bates MD
== END 2016-05-05 14:30 | disposition home or self-care (01) ==
LOC: ED SRH 10:31
DX: I82.4Y1 Acute embolism and thrombosis of unspecified deep veins of right proximal lower extremity (principal); Z79.01 Long term (current) use of anticoagulants; F17.290 Nicotine dependence, other tobacco product, uncomplicated

== ENCOUNTER 2016-05-11 10:41 | Emergency (ER) | payer OTHER, MEDICARE ==
--- NOTE | 2016-05-11 12:20 | DIAGNOSTIC IMAGING REPORT ---
PROCEDURE: CT ABD/PELVIS WITH CONTRAST CLINICAL INDICATION: LOWER ABDO PAIN. HX OF R ING HERNIA. TECHNIQUE: 125 ml of Isovue 300 were injected intravenously and axial images were obtained of the entire abdomen and pelvis with sagittal and coronal reformations. COMPARISON: None. FINDINGS: ABDOMEN: Lung base are clear. Heart size is normal. Liver, gallbladder, pancreas, spleen and right adrenal gland are normal. There is some thickening of the left adrenal gland. Small bilateral renal cysts. Mild to moderate atherosclerosis of the aorta. IVC filter in place. There is some fluid in the ascending colon. PELVIS: Normal appendix. Normal prostate. Mild circumferential bladder wall thickening which may be due to decompression versus cystitis. No pelvic mass, inflammatory changes or free fluid. No evidence of a hernia. Moderate degenerative changes of the spine. IMPRESSION: 1. Fluid in the ascending colon which may indicate enterocolitis 2. Mild bladder wall thickening which may be due to decompression versus cystitis. Correlate clinically. 3. IVC filter in place 4. Results discussed with Dr. Johnson All CT scans at this facility use dose modulation, iterative reconstruction, and/or weight-based dosing when appropriate to reduce radiation dose to as low as reasonably achievable.
--- NOTE | 2016-05-11 13:43 | ED ORDER SUMMARY ---
..... Patient: RASHIDA ROB OrderSheet [facility] VisitID: [id number] [address] [place] [address] 65y, M Registration Date/Time: 05/11/2016 ORDER SHEET Weight: 79.3 kg (stated) Allergies: No Known Drug Allergy GENERAL ORDERS: CT Abd/Pel w Cont (No) (N/A) Urgent (11:05/11/2016 Shanna Hdz) (Ack 11:20 KHoerner) (11:58 EHassan R.N.) CBC w Diff Urgent (11:05/11/2016 Shanna Hdz) (Ack 11:20 KHoerner) (11:22 KHoerner) CMP Urgent (11:05/11/2016 Shanna Hdz) (Ack 11:20 DAVEoerner) (11:22 KHoerner) PT with INR Urgent (11:05/11/2016 Shanna Hdz) (Ack 11:20 KHoerner) (11:22 KHoerner) Pulse oximeter (11:05/11/2016 Shanna Hdz) (Ack 11:20 KHoerner) (11:25 EHassan R.N.) UA-Culture if indicated Urgent (11:05/11/2016 Shanna Hdz) (Ack 11:22 DAVEoerner) (13:14 EHassan R.N.) MEDICATION ORDERS: IV FLUIDS: Morphine IV 4 mg (HIGH ALERT MEDICATION, NOW) (12:05/11/2016 Shanna Hdz) (12:27 EHassan R.N.) IV NS : initial bolus 1000 mL (1000 mL/hr), then none - for X1 (NOW) (12:05/11/2016 Shanna Hdz) (12:25 JULIÁNassan R.N.) ORDER SHEET NOTES: [Electronically signed by Ciara Chung R.N. (14:05/11/2016)] [Electronically signed by Dustin Johnson Dr. (09:11 05/16/2016)] [Electronically locked/signed by Ciara Chung R.N. (14:30 05/11/2016)]
--- NOTE | 2016-05-11 13:43 | ED ORDER SUMMARY ---
..... Patient: RASHIDA ROB OrderSheet [facility] VisitID: [id number] [address] [place] [address] 65y, M Registration Date/Time: 05/11/2016 ORDER SHEET Weight: 79.3 kg (stated) Allergies: No Known Drug Allergy GENERAL ORDERS: CT Abd/Pel w Cont (No) (N/A) Urgent (11:05/11/2016 Shanna Hdz) (Ack 11:20 KHoerner) (11:58 EHassan R.N.) CBC w Diff Urgent (11:05/11/2016 Shanna Hdz) (Ack 11:20 KHoerner) (11:22 KHoerner) CMP Urgent (11:05/11/2016 Shanna Hdz) (Ack 11:20 DAVEoerner) (11:22 KHoerner) PT with INR Urgent (11:05/11/2016 Shanna Hdz) (Ack 11:20 KHoerner) (11:22 KHoerner) Pulse oximeter (11:05/11/2016 Shanna Hdz) (Ack 11:20 KHoerner) (11:25 EHassan R.N.) UA-Culture if indicated Urgent (11:05/11/2016 Shanna Hdz) (Ack 11:22 DAVEoerner) (13:14 EHassan R.N.) MEDICATION ORDERS: IV FLUIDS: Morphine IV 4 mg (HIGH ALERT MEDICATION, NOW) (12:05/11/2016 Shanna Hdz) (12:27 EHassan R.N.) IV NS : initial bolus 1000 mL (1000 mL/hr), then none - for X1 (NOW) (12:05/11/2016 Shanna Hdz) (12:25 JULIÁNassan R.N.) ORDER SHEET NOTES: [Electronically signed by Ciara Chung R.N. (14:05/11/2016)] [Electronically signed by Dustin Johnson Dr. (09:11 05/16/2016)] [Electronically locked/signed by Ciara Chung R.N. (14:30 05/11/2016)]
--- NOTE | 2016-05-11 13:43 | ED NURSING NOTES ---
Clinical Report - Nurses [facility] [address] [place] [address] 05/11/2016 10:41 Patient: RASHIDA ROB TRIAGE Triage time 1050 AM. Acuity: LEVEL 3. Chief Complaint: ABDOMINAL PAIN and DIARRHEA. Alert. No acute distress. SEPSIS SCREEN: Sepsis Screen. Negative (no infection suspected/documented). ILIANA COMA SCORE: [place] Coma Scale: 15- eyes open spontaneously (4); best verbal response- oriented x 4 (5); best motor response- obeys commands (6). --11:01 Ciara Chung R.N. 10:52 05/11/16. BP: 126/92. HR: 68. RR: 15. O2 saturation: 100%. Temp: 98.3 F (oral). Pain level now: 09/21. --11:01 Ciara Chung R.N. Weight: 79.3 kg stated. Height/Length: 74 inches Per Patient. BMI: 22.5. --10:52 Ciara Chung R.N. Medications High chilesterol medication unkown of name . Warfarin Sodium Oral (Tablet 7.5 mg), daily. --14:30 Ciara Chung R.N. Medication/allergy information source: the patient. --11:01 Ciara Chung R.N. Allergies No Known Drug Allergy. --14:30 Ciara Chung R.N. History Arrived by private vehicle. Historian: patient. Accompanied by family. Primary physician (Dr. Mccray). ( Pt states having abdominal pain that started about 5 days ago, was here for leg pain, is on warfarin, admits to having diarrhea just once a day, loose denies blood or difficulty urinating, vomiting or being nausea.). This is a new problem. Symptoms are constant and still present (5 days). He has had diarrhea and abdominal pain. No nausea, vomiting or constipation. Last oral intake by patient was dinner. 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 PAST MEDICAL HX: Immunizations: up-to-date. SOCIAL HX: Heavy tobacco smoker (cigarette)- less than 1 pack per day. History of weekly drug use: marijuana. Recently used drugs yesterday. No alcohol use. No recent travel. No infectious disease exposure. No known contact with a sick individual. ABUSE ASSESSMENT: No report of abuse. SELF HARM ASSESSMENT: A self harm assessment was performed. The patient answered "no" to the question "Do you have thoughts of harming or killing yourself?" and "Have you recently had thoughts about harming or killing others?". FALL RISK ASSESSMENT: Fall risk assessment completed. No fall risk identified. NUTRITIONAL RISK ASSESSMENT: The nutritional risk assessment revealed no deficiencies. FUNCTIONAL ASSESSMENT: Functional assessment: no impairments noted. LEARNING NEEDS ASSESSMENT: The learning needs assessment revealed no barriers. SKIN INTEGRITY ASSESSMENT: Skin integrity risk assessment completed. No skin integrity risk identified. --11:01 Ciara Chung R.N. PROBLEMS: Superficial Thrombophlebitis. DVT - Deep Venous Thrombosis. Lifestyle / Substance Problems. --10:57 Ciara Chung R.N. ADDITIONAL SURGERIES: Filter placed through groin for DVT. IVC filter placement. Knee Surgery. Shoulder Surgery. --10:57 Ciara Chung R.N. Interventions ID band on patient. --11:01 Ciara Chung R.N. PHYSICAL ASSESSMENT Ambulatory to room. GENERAL / NEURO / PSYCH: Alert. Oriented X 4. Appears in no acute distress. HEENT: Mucous membranes are pink. RESPIRATORY: Respirations not labored. Decreased breath sounds in the bases bilaterally. Breath sounds within normal limits. CVS: Capillary refill less than 2 seconds. GI / : Abdomen soft. Abdominal tenderness in the lower abdomen. Guarding present. Bowel sounds within normal limits. SKIN: Skin is warm and dry. --11:03 Ciara Chung R.N. NURSING PROGRESS NOTES 10:58 05/11/2016 Site #1 started via IV in the right antecubital space with an 20g angiocath; one attempt. Blood drawn: rainbow set. Labeled in the presence of the patient and sent to the lab. --11:03 Ciara Chung R.N. The initial plan of care for this patient has been created This plan of care was discussed with the patient. Patient gowned. Reassurance given. Two patient identifiers checked. Call light placed in reach. Side rails up x 1. Bed placed in lowest position. Brakes of bed on. Patient ready for evaluation- ED physician notified. --11:04 Ciara Chung R.N. Pulse oximeter and NIBP monitor placed on patient. Reassurance given. Two patient identifiers checked. Call light placed in reach. Bed placed in lowest position. --11:58 Ciara Chung R.N. 11:57 05/11/16. BP: 140/81 (regular adult cuff) taken on the left arm, via an automated monitor, while lying. HR: 65. RR: 14. O2 saturation: 100%. Pain level now: 09/21. --11:58 Ciara Chung R.N. ( awaiting on urine, pt aware). --11:58 Ciara Chung R.N. 12:25 05/11/2016 Started bag #1 1000 mL IV Fluids IV NS (Saline); at 1000 mL/hr over 1 hour(s) via site #1 via dial-a-flow. Allergies verified and confirmed 5 rights. IV patency established. IV site checked: no pain, redness, or swelling. IV flushed thoroughly pre- and post-medication administration. --12:25 Ciara Chung R.N. 12:27 05/11/2016 Morphine IVP 4 mg given over 2 minute(s) via site #1. Allergies verified, confirmed 5 rights and sedative warning given to the patient and patient's family. IV patency established. IV site checked: no pain, redness, or swelling. IV flushed thoroughly pre- and post-medication administration. IVP given by RN. --12:27 Ciara Chung R.N. 13:14 05/11/2016 Morphine IVP Response: no adverse reaction pain is improving. Symptoms have improved the patient feels better. --13:15 Ciara Chung R.N. 13:37 05/11/16. BP: 141/73 (regular adult cuff) taken on the left arm, via an automated monitor, while sitting. HR: 56. RR: 15. O2 saturation: 100% on room air. Temp: 98.2 F (oral). Pain level now: 07/22. --13:38 Ciara Chung R.N. Pulse oximeter and NIBP monitor placed on patient. Reassurance given. Reassessment after fluids administered and medication administered. He has had no adverse reaction. ( pain is better, anxious on results, emotional support provided.). GI / : The patient reports abdominal pain. Denies nausea or diarrhea. Call light placed in reach. --13:38 Ciara Chung R.N. 14:24 05/11/2016 IV Fluids IV NS Discontinued: bag #1 infused upon discharge. Total amount infused: 1000 mL. IV patency established. IV site checked: no pain, redness, or swelling. IV flushed thoroughly. --14:29 Ciara Chung R.N. DISPOSITION / DISCHARGE 14:28 05/11/2016 Site #1 removed upon discharge. Catheter intact. Manual pressure and bandaid applied. --14:28 Ciara Chung R.N. Departure time: 1430 PM. Condition at departure: improved and stable. The goals identified in the patient's plan of care were met. No learning barriers present. Reviewed medication(s) side effects, precautions, dosing and course information. Prescription(s) given to the patient. Reviewed referral to a surgeon. Patient verbalized understanding. Written instructions provided in Haitian. No warning instructions. The patient was discharged by the physician. He was discharged home and accompanied by spouse. He left the Emergency Department ambulatory and via private vehicle. Spouse driving. FALL RISK ASSESSMENT: Fall risk assessment completed. No fall risk identified. --14:30 Ciara Chung R.N. 14:15 05/11/16. BP: 133/73. HR: 65. RR: 14. O2 saturation: 100% on room air. Temp: 97.8 F (oral). Pain level now: 06/21. --14:30 Ciara Chung R.N. Locked/Released at 05/11/2016 14:30 by Ciara Chung R.N.
--- NOTE | 2016-05-11 13:43 | ED CLINICAL REPORT ---
Clinical Report - Physicians/Mid Levels [facility] [address] [place] [address] 05/11/2016 10:41 Patient: RASHIDA ROB Time Seen: 1105. Arrived- By private vehicle. Historian- patient. HISTORY OF PRESENT ILLNESS Chief Complaint: ABDOMINAL PAIN. This started today and is still present (staying the same). It was abrupt in onset and has been constant but is not gone now. At its maximum, severity described as mild. When seen in the E.D., severity described as mild. No radiation. It is described as located in the lower abdomen. No nausea, loss of appetite or vomiting. He has had loose stools. This has occurred only once. No bloody or blood-tinged diarrhea. No additional abdominal pain. No recent travel. Similar symptoms previously: Several times. ( hx hernia. not repaired. reports does not want to deal with the surgery.). REVIEW OF SYSTEMS No joint pain or skin rash. All systems otherwise negative, except as recorded above. PAST HISTORY See nurses notes. Medications: High chilesterol medication unkown of name . Warfarin Sodium Oral (Tablet 7.5 mg), daily. Allergies: No Known Drug Allergy. SOCIAL HISTORY Smoker- current status unknown. History of drug use: marijuana. No alcohol use. No recent travel. Is a local resident. ADDITIONAL NOTES The nursing notes have been reviewed. PHYSICAL EXAM Vital Signs: 05/11/2016 10:52 BP: 126/92. HR: 68. RR: 15. O2 saturation: 100%. Temp: 98.3 F. Pain level now: 8/10. Oxygen saturation normal. Appearance: Alert. Oriented X3. No acute distress. Eyes: Pupils equal, round and reactive to light. Eyes normal inspection. CVS: Normal heart rate and rhythm. Heart sounds normal. Pulses normal. Respiratory: No respiratory distress. Breath sounds normal. Chest nontender. Abdomen: Soft and nontender. Bowel sounds normal. Back: Normal inspection. : Normal genitalia. Testes descended. No tenderness present or scrotal swelling. Rectal: (reducible right ingunal hernia. no overlying skin changes. no crepitus.). Skin: Skin warm and dry. Normal skin color. No rash. Normal skin turgor. Extremities: Extremities exhibit normal ROM. No lower extremity edema. LABS, X-RAYS, AND EKG Abdominal CT: PROCEDURE: CT ABD/PELVIS WITH CONTRAST CLINICAL INDICATION: LOWER ABDO PAIN. HX OF R ING HERNIA. TECHNIQUE: 125 ml of Isovue 300 were injected intravenously and axial images were obtained of the entire abdomen and pelvis with sagittal and coronal reformations. COMPARISON: None. FINDINGS: ABDOMEN: Lung base are clear. Heart size is normal. Liver, gallbladder, pancreas, spleen and right adrenal gland are normal. There is some thickening of the left adrenal gland. Small bilateral renal cysts. Mild to moderate atherosclerosis of the aorta. IVC filter in place. There is some fluid in the ascending colon. PELVIS: Normal appendix. Normal prostate. Mild circumferential bladder wall thickening which may be due to decompression versus cystitis. No pelvic mass, inflammatory changes or free fluid. No evidence of a hernia. Moderate degenerative changes of the spine. IMPRESSION: 1. Fluid in the ascending colon which may indicate enterocolitis 2. Mild bladder wall thickening which may be due to decompression versus cystitis. Correlate clinically. 3. IVC filter in place. The study was independently viewed by me and interpreted by the radiologist. The study was discussed with the radiologist (via phone and pacs). Laboratory Tests: UA-Culture if indicated: (SKY: 05/11/2016 13:15) ( [facility] 05/11/2016 13:36) IP Test Result Flag Units (Reference) URINE COLOR YELLOW URINE APPEARANCE CLEAR URINE GLUCOSE NEGATIVE (NEGATIVE) URINE BILIRUBIN NEGATIVE (NEGATIVE) URINE KETONE NEGATIVE (NEGATIVE) URINE SPECIFIC GRAVITY <= 1.005 L (1.010-1.030) URINE PH 5.0 (5.0-8.0) URINE PROTEIN NEGATIVE (NEGATIVE) URINE UROBILINOGEN 0.2 EU/dL (0.2-1.0) URINE NITRITE NEGATIVE (NEGATIVE) URINE BLOOD TRACE-INTACT (NEGATIVE) URINE LEUK ESTERASE NEGATIVE (NEGATIVE) CBC w Diff: (SKY: 05/11/2016 11:00) ( [facility] 05/11/2016 11:35) Final results Test Result Flag Units (Reference) WHITE BLOOD COUNT 9.2 K/uL (4.5-11.5) RED BLOOD COUNT 5.21 M/uL (4.50-5.90) HEMOGLOBIN 16.4 gm/dL (13.5-17.5) HEMATOCRIT 49.4 % (41.0-53.0) MEAN CELL VOLUME 95 fL (80-100) MEAN CORPUSCULAR HGB 31 pg (26-34) MEAN CORPUSCULAR HGB CONC 33 g/dL (31-37) RED CELL DISTRIBUTION WIDTH 14.0 % (11.6-14.8) PLATELET COUNT 158 K/uL (150-400) NEUTROPHIL % 70.4 % (50-75) LYMPH % 20.8 L % (25-40) MONO % 7.5 % (3-14) EOSINOPHIL % 0.7 % (0-4) BASOPHIL % 0.6 % (0-2) PT with INR: (SKY: 05/11/2016 11:00) ( [facility] 05/11/2016 11:33) Final results Test Result Flag Units (Reference) INR 2.0 H (0.8-1.2) Low Intensity Therapy: INR 1.5-2.0 PT range 18.5-23.1Mod.Intensity Therapy: INR 2.0-3.0 PT range 23.1-31.5High Intensity Therapy: INR 2.5-3.5 PT range 27.4-35.5High Intensity Therapy 2: INR 3.0-4.0 PT range 31.5-39.3 CMP: (SKY: 05/11/2016 11:00) ( [facility] 05/11/2016 11:37) Final results Test Result Flag Units (Reference) GLUCOSE 114 H mg/dL (70-110) BUN 15 mg/dL (7-18) CREATININE 1.1 mg/dL (0.6-1.3) Estimated GFR >60 mL/min Estimated GFR- >60 mL/min Note: Persistent reduction over 3 months in eGFR<60 mL/min/1.73 m2 defines CKD. Patients with eGFR values>=60 mL/min/1.73 m2 may also have CKD if evidence ofpersistent proteinuria. Additional information may be foundat www.kidney.org. SODIUM 141 mmol/L (136-145) POTASSIUM 3.6 mmol/L (3.5-5.1) CHLORIDE 105 mmol/L (98-107) CARBON DIOXIDE 27 mmol/L (21-32) CALCIUM 9.4 mg/dL (8.5-10.1) TOTAL PROTEIN 7.3 g/dL (6.4-8.2) ALBUMIN 3.9 g/dL (3.3-5.0) BILIRUBIN, TOTAL 0.4 mg/dL (0.0-1.0) ALKALINE PHOSPHATASE 63 U/L (46-116) AST (SGOT) 17 U/L (15-37) ALT (SGPT) 28 U/L (12-78) . PROGRESS AND PROCEDURES Course of Care: The patient is a pleasant 65 yo male with hx of hernia presenting for evaluation of right lower quadrant abdominal pain. Differential includes UTI, appy, and inschemic bowel. Hernia reducible at bedside. Patient non-toxic. He is agreeable to the treatment and plan. All questions answered. Work up is remarkable for the findings above. Do not feel patient has a surgical abdomen. Patient with improved symptoms. Had discussion with patient in regards to hernia and abdominal pain. Repeat exam is benign. Discussed with patient workup, diagnosis, home care, follow up, and return precautions. All questions answered. Patient expressed understanding of these instructions and was agreeable to them. Upon discharge, patient ambulating without discomfort and smiling. Referal to gen surge provided. Disposition: Discharged. Condition: good. CLINICAL IMPRESSION Acute suprapubic abdominal pain of unknown cause. Reducible and recurrent right inguinal hernia. No incarcerated hernia, obstruction or gangrene. INSTRUCTIONS Warnings: GENERAL WARNINGS: Return or contact your physician immediately if your condition worsens or changes unexpectedly, if not improving as expected, or if other problems arise. SPECIFICALLY, return if you develop pain, fever, vomiting, the inability to keep fluids down, blood in vomitus, blood in diarrhea, fainting, lightheadedness or vaginal bleeding. Prescription Medications: [place] 5 mg / 325 mg tablets: take 1 orally every 6 hours as needed for pain. Dispense ten (10). No refill. Substitution is permissible. Miralax: take 1 measuring cupful supplied every day as needed for constipation. Dispense twenty-six (26) ounce bottle. No refills. Substitution is permissible. Follow-up: Return to the emergency department as needed. Follow up with your doctor in three days. Reason for referral: recheck today's concerns. Summary of care provided to patient via paper. Screening today revealed the patient's blood pressure to be in the normal range. The patient should follow up with a primary care provider for blood pressure management. Understanding of the discharge instructions verbalized by patient. Follow-up with: Justin Macdonald MD, General Surgeon, , [facility], [address] [place] [address] Follow up in one week. Reason for referral: recheck today's concerns. Summary of care provided to patient via paper. (Electronically signed by Dustin Johnson Dr. 05/16/2016 9:11)
--- NOTE | 2016-05-16 09:11 | ED MAR SUMMARY ---
..... Medication Administration Record [facility] [address] [place] [address] Patient: RASHIDA ROB Visit ID: [id number] 65y, M Weight: 79.3 kg Height/Length: 74 in BMI: 22.5 ALLERGIES: No Known Drug Allergy Start 12:25 05/11/2016 Ciara Chung R.N., Stop 14:24 05/11/2016 Ciara Chung R.N. Medication Administered: IV NS (SALINE), Dose: IV Fluids over 1 hour(s), Rate: 1000 mL/hr, Dispensed: 1000 mL bag, Site: #1 right AC. Medication Ordered: IV NS : initial bolus 1000 mL (1000 mL/hr), then none - for X1 (NOW). Given 12:27 05/11/2016 Ciara Chung R.N. Medication Administered: MORPHINE [IVP], Dose: 4 mg IVP over 2 minute(s), Site: #1 right AC. Medication Ordered: Morphine IV 4 mg (HIGH ALERT MEDICATION, NOW).
--- NOTE | 2016-05-16 09:11 | ED MED RECONCILIATION SUMMARY ---
Patient: RASHIDA ROB Medication Reconciliation Report [facility] VisitID: [id number] [address] [place] [place] [address] 65y, M Registration Date/Time: 05/11/2016 Weight: 79.3 kg Height/Length: 74 in. BMI: 22.5 ALLERGIES: No Known Drug Allergy The patient's Home Medications are listed below: THE FOLLOWING MEDICATIONS NEED TO BE RECONCILED: High chilesterol medication unkown of name Warfarin Sodium Oral (7.5 mg), daily The source(s) of the original Home Medication information: patient The following Medications were given to the patient in the Emergency Department: IV NS IV Fluids bolus 0, then 1000 mL/hr, administered: 05/11/2016 12:25:00 PM Morphine [IVP] IVP 4 mg, administered: 05/11/2016 12:27:00 PM The following Medications were prescribed to the patient: [place] 5 mg / 325 mg tablets: take 1 orally every 6 hours as needed for pain. Dispense ten (10). No refill. Substitution is permissible. -- Dustin Johnson Dr. Miralax: take 1 measuring cupful supplied every day as needed for constipation. Dispense twenty-six (26) ounce bottle. No refills. Substitution is permissible. -- Dustin Johnson Dr.
--- NOTE | 2016-05-16 09:11 | ED MED RECONCILIATION SUMMARY ---
Patient: RASHIDA ROB Medication Reconciliation Report [facility] VisitID: [id number] [address] [place] [address] 65y, M Registration Date/Time: 05/11/2016 Weight: 79.3 kg Height/Length: 74 in. BMI: 22.5 ALLERGIES: No Known Drug Allergy The patient's Home Medications are listed below: THE FOLLOWING MEDICATIONS NEED TO BE RECONCILED: High chilesterol medication unkown of name Warfarin Sodium Oral (7.5 mg), daily The source(s) of the original Home Medication information: patient The following Medications were given to the patient in the Emergency Department: IV NS IV Fluids bolus 0, then 1000 mL/hr, administered: 05/11/2016 12:25:00 PM Morphine [IVP] IVP 4 mg, administered: 05/11/2016 12:27:00 PM The following Medications were prescribed to the patient: [place] 5 mg / 325 mg tablets: take 1 orally every 6 hours as needed for pain. Dispense ten (10). No refill. Substitution is permissible. -- Dustin Jhonson Dr. Miralax: take 1 measuring cupful supplied every day as needed for constipation. Dispense twenty-six (26) ounce bottle. No refills. Substitution is permissible. -- Dustin Johnson Dr.
--- NOTE | 2016-05-16 09:11 | ED MAR SUMMARY ---
..... Medication Administration Record [facility] [address] [place] [address] Patient: RASHIDA ROB Visit ID: [id number] 65y, M Weight: 79.3 kg Height/Length: 74 in BMI: 22.5 ALLERGIES: No Known Drug Allergy Start 12:25 05/11/2016 Ciara Chung R.N., Stop 14:24 05/11/2016 Ciara Chung R.N. Medication Administered: IV NS (SALINE), Dose: IV Fluids over 1 hour(s), Rate: 1000 mL/hr, Dispensed: 1000 mL bag, Site: #1 right AC. Medication Ordered: IV NS : initial bolus 1000 mL (1000 mL/hr), then none - for X1 (NOW). Given 12:27 05/11/2016 Ciara Chung R.N. Medication Administered: MORPHINE [IVP], Dose: 4 mg IVP over 2 minute(s), Site: #1 right AC. Medication Ordered: Morphine IV 4 mg (HIGH ALERT MEDICATION, NOW).
--- NOTE | 2016-05-16 09:11 | ED DISCHARGE INSTRUCTIONS ---
Patient: RASHIDA ROB General Instructions [facility] VisitID: [id number] [address] [place] [place] [address] 65y, M Registration Date/Time: 05/11/2016 Acute suprapubic abdominal pain of unknown cause. Reducible and recurrent right inguinal hernia. No incarcerated hernia, obstruction or gangrene. INSTRUCTIONS Warnings: GENERAL WARNINGS: Return or contact your physician immediately if your condition worsens or changes unexpectedly, if not improving as expected, or if other problems arise. SPECIFICALLY, return if you develop pain, fever, vomiting, the inability to keep fluids down, blood in vomitus, blood in diarrhea, fainting, lightheadedness or vaginal bleeding. Prescription Medications: [place] 5 mg / 325 mg tablets: take 1 orally every 6 hours as needed for pain. Dispense ten (10). No refill. Substitution is permissible. Miralax: take 1 measuring cupful supplied every day as needed for constipation. Dispense twenty-six (26) ounce bottle. No refills. Substitution is permissible. Follow-up: Return to the emergency department as needed. Follow up with your doctor in three days. Reason for referral: recheck today's concerns. Summary of care provided to patient via paper. Screening today revealed the patient's blood pressure to be in the normal range. The patient should follow up with a primary care provider for blood pressure management. Understanding of the discharge instructions verbalized by patient. Follow-up with: Justin Macdonald MD, General Surgeon, , [facility], [address] [place] [address] Follow up in one week. Reason for referral: recheck today's concerns. Summary of care provided to patient via paper. ADDITIONAL INFORMATION Abdominal Pain,Uncertain Cause [Male] Based on your visit today, the exact cause of your abdominalpain is not clear. Your exam and tests do not indicate a dangerous cause at this time. However, the signs of a serious problem may take more time to appear. Although your evaluation was reassuring today, sometimes early in the course of many conditions, exam and lab tests can appear normal. Therefore, it is important for you to watch for any new symptoms or worsening of your condition. Causes It may not be obvious what caused your symptoms. Pay attention to things that do seem to make your symptoms worse or better and discuss this with your doctor when you follow up. Diagnosis The evaluation of abdominal pain in the emergency department may onlyrequire an exam by the doctor or it may include blood, urine or imaging studies, depending on many factors. Sometimes exams and tests can identify a cause but in many cases, a clear cause is not found. Further testing at follow up visits may help to suggest a clear diagnosis. Home Care Rest as much as possible until your next exam. Try to avoid any medications (unless otherwise directed by your doctor), foods, activities, or other factors that you may have contributed to your symptoms. Try to eat foods that you know that you have tolerated well in the past. Certain diets may be recommended for some conditions that cause abdominal pain. However, since the cause of your symptoms may not be clear, discuss your diet more with your primary care provider or specialist for further recommendations. Eating several small meals per day as opposed to 2 or 3 larger meals may help. Monitor closely for anything that may make your symptoms worse or better. Pay close attention to symptoms below that may indicate worsening of your condition. Follow Up and Precautions See your doctoras instructed or sooneror if your symptoms are not improving.In some cases, you may need more testing. When to Seek Medical Attention Contact your doctor or see medical attention ifany of the following occur: Pain is becoming worse You are unable to take your medications due to excessive vomiting Swelling of the abdomen Fever of 100.4F (38C) or higher, or as directed by your health care provider Blood in vomit or bowel movements (dark red or black color) Jaundice (yellow color of eyes and skin) New onset of weakness, dizziness or fainting New onset of chest, arm, back, neck or jaw pain Hernia [Adult] A hernia is a bulge of the intestines or surrounding tissues through a tear in the muscle of the abdomen or groin. This may occur as a result of excessive coughing, heavy lifting or being overweight. It can also occur at the site of prior surgery. When a hernia first appears it may be painful due to stretching and tearing of the muscle fibers. When you lie down, the bulge should reduce in size or disappear completely. If it does not, and you are unable to flatten it with your hand, medical attention is needed at once. Home Care: Avoid heavy lifting and straining or any activities that cause pain in the hernia. Follow Up with your physician as directed by our staff. Get Prompt Medical Attention if any of the following occur: Increasing size of the hernia Increasing pain in the hernia A hernia that does not get smaller when you lie down Hardening of the hernia Abdominal swelling, fever or repeated vomiting Pain moves to the lower right abdomen (just below the waistline) or spreads to the back Hydrocodone Bitartrate, Acetaminophen Oral tablet What is this medicine? ACETAMINOPHEN; HYDROCODONE (a set a KRISHNA petr fen; kathleen droe KOE done) is a pain reliever. It is used to treat mild to moderate pain. How should I use this medicine? Take this medicine by mouth. Swallow it with a full glass of water. Follow the directions on the prescription label. If the medicine upsets your stomach, take the medicine with food or milk. Do not take more than you are told to take. Talk to your conflict resolution professional regarding the use of this medicine in children. This medicine is not approved for use in children. What side effects may I notice from receiving this medicine? Side effects that you should report to your doctor or health transitions rn care coordinator as soon as possible: allergic reactions like skin rash, itching or hives, swelling of the face, lips, or tongue breathing problems confusion feeling faint or lightheaded, falls stomach pain yellowing of the eyes or skin Side effects that usually do not require medical attention (report to your doctor or health transitions rn care coordinator if they continue or are bothersome): nausea, vomiting stomach upset What may interact with this medicine? alcohol antihistamines isoniazid medicines for depression, anxiety, or psychotic disturbances medicines for sleep muscle relaxants naltrexone narcotic medicines (opiates) for pain phenobarbital ritonavir tramadol What if I miss a dose? If you miss a dose, take it as soon as you can. If it is almost time for your next dose, take only that dose. Do not take double or extra doses. Where should I keep my medicine? Keep out of the reach of children. This medicine can be abused. Keep your medicine in a safe place to protect it from theft. Do not share this medicine with anyone. Selling or giving away this medicine is dangerous and against the law. Store at room temperature between 15 and 30 degrees C (59 and 86 degrees F). Protect from light. Keep container tightly closed. Throw away any unused medicine after the expiration date. Discard unused medicine and used packaging carefully. Pets and children can be harmed if they find used or lost packages. What should I tell my health care provider before I take this medicine? They need to know if you have any of these conditions: brain tumor Crohn's disease, inflammatory bowel disease, or ulcerative colitis drink more than 3 alcohol-containing drinks per day drug abuse or addiction head injury heart or circulation problems kidney disease or problems going to the bathroom liver disease lung disease, asthma, or breathing problems an unusual or allergic reaction to acetaminophen, hydrocodone, other opioid analgesics, other medicines, foods, dyes, or preservatives or trying to get breast-feeding What should I watch for while using this medicine? Tell your doctor or health transitions rn care coordinator if your pain does not go away, if it gets worse, or if you have new or a different type of pain. You may develop tolerance to the medicine. Tolerance means that you will need a higher dose of the medicine for pain relief. Tolerance is normal and is expected if you take the medicine for a long time. Do not suddenly stop taking your medicine because you may develop a severe reaction. Your body becomes used to the medicine. This does NOT mean you are addicted. Addiction is a behavior related to getting and using a drug for a non-medical reason. If you have pain, you have a medical reason to take pain medicine. Your doctor will tell you how much medicine to take. If your doctor wants you to stop the medicine, the dose will be slowly lowered over time to avoid any side effects. You may get drowsy or dizzy when you first start taking the medicine or change doses. Do not drive, use machinery, or do anything that may be dangerous until you know how the medicine affects you. Stand or sit up slowly. There are different types of narcotic medicines (opiates) for pain. If you take more than one type at the same time, you may have more side effects. Give your health care provider a list of all medicines you use. Your doctor will tell you how much medicine to take. Do not take more medicine than directed. Call emergency for help if you have problems breathing. The medicine will cause constipation. Try to have a bowel movement at least every 2 to 3 days. If you do not have a bowel movement for 3 days, call your doctor or health transitions rn care coordinator. Too much acetaminophen can be very dangerous. Do not take Tylenol (acetaminophen) or medicines that contain acetaminophen with this medicine. Many non-prescription medicines contain acetaminophen. Always read the labels carefully. You have been given the following additional information: Abdominal Pain, Unknown Cause, (Male) Hernia (Inguinal, Ventral, Umbilical) Hydrocodone Bitartrate, Acetaminophen Oral tablet (Electronically signed by Dustin Johnson Dr. 05/16/2016 9:11)
--- NOTE | 2016-05-16 09:11 | ED DISCHARGE INSTRUCTIONS ---
Patient: RASHIDA ROB General Instructions [facility] VisitID: [id number] [address] [place] [place] [address] 65y, M Registration Date/Time: 05/11/2016 Acute suprapubic abdominal pain of unknown cause. Reducible and recurrent right inguinal hernia. No incarcerated hernia, obstruction or gangrene. INSTRUCTIONS Warnings: GENERAL WARNINGS: Return or contact your physician immediately if your condition worsens or changes unexpectedly, if not improving as expected, or if other problems arise. SPECIFICALLY, return if you develop pain, fever, vomiting, the inability to keep fluids down, blood in vomitus, blood in diarrhea, fainting, lightheadedness or vaginal bleeding. Prescription Medications: [place] 5 mg / 325 mg tablets: take 1 orally every 6 hours as needed for pain. Dispense ten (10). No refill. Substitution is permissible. Miralax: take 1 measuring cupful supplied every day as needed for constipation. Dispense twenty-six (26) ounce bottle. No refills. Substitution is permissible. Follow-up: Return to the emergency department as needed. Follow up with your doctor in three days. Reason for referral: recheck today's concerns. Summary of care provided to patient via paper. Screening today revealed the patient's blood pressure to be in the normal range. The patient should follow up with a primary care provider for blood pressure management. Understanding of the discharge instructions verbalized by patient. Follow-up with: Justin Macdonald MD, General Surgeon, , [facility], [address] [place] [address] Follow up in one week. Reason for referral: recheck today's concerns. Summary of care provided to patient via paper. ADDITIONAL INFORMATION Abdominal Pain,Uncertain Cause [Male] Based on your visit today, the exact cause of your abdominalpain is not clear. Your exam and tests do not indicate a dangerous cause at this time. However, the signs of a serious problem may take more time to appear. Although your evaluation was reassuring today, sometimes early in the course of many conditions, exam and lab tests can appear normal. Therefore, it is important for you to watch for any new symptoms or worsening of your condition. Causes It may not be obvious what caused your symptoms. Pay attention to things that do seem to make your symptoms worse or better and discuss this with your doctor when you follow up. Diagnosis The evaluation of abdominal pain in the emergency department may onlyrequire an exam by the doctor or it may include blood, urine or imaging studies, depending on many factors. Sometimes exams and tests can identify a cause but in many cases, a clear cause is not found. Further testing at follow up visits may help to suggest a clear diagnosis. Home Care Rest as much as possible until your next exam. Try to avoid any medications (unless otherwise directed by your doctor), foods, activities, or other factors that you may have contributed to your symptoms. Try to eat foods that you know that you have tolerated well in the past. Certain diets may be recommended for some conditions that cause abdominal pain. However, since the cause of your symptoms may not be clear, discuss your diet more with your primary care provider or specialist for further recommendations. Eating several small meals per day as opposed to 2 or 3 larger meals may help. Monitor closely for anything that may make your symptoms worse or better. Pay close attention to symptoms below that may indicate worsening of your condition. Follow Up and Precautions See your doctoras instructed or sooneror if your symptoms are not improving.In some cases, you may need more testing. When to Seek Medical Attention Contact your doctor or see medical attention ifany of the following occur: Pain is becoming worse You are unable to take your medications due to excessive vomiting Swelling of the abdomen Fever of 100.4F (38C) or higher, or as directed by your health care provider Blood in vomit or bowel movements (dark red or black color) Jaundice (yellow color of eyes and skin) New onset of weakness, dizziness or fainting New onset of chest, arm, back, neck or jaw pain Hernia [Adult] A hernia is a bulge of the intestines or surrounding tissues through a tear in the muscle of the abdomen or groin. This may occur as a result of excessive coughing, heavy lifting or being overweight. It can also occur at the site of prior surgery. When a hernia first appears it may be painful due to stretching and tearing of the muscle fibers. When you lie down, the bulge should reduce in size or disappear completely. If it does not, and you are unable to flatten it with your hand, medical attention is needed at once. Home Care: Avoid heavy lifting and straining or any activities that cause pain in the hernia. Follow Up with your physician as directed by our staff. Get Prompt Medical Attention if any of the following occur: Increasing size of the hernia Increasing pain in the hernia A hernia that does not get smaller when you lie down Hardening of the hernia Abdominal swelling, fever or repeated vomiting Pain moves to the lower right abdomen (just below the waistline) or spreads to the back Hydrocodone Bitartrate, Acetaminophen Oral tablet What is this medicine? ACETAMINOPHEN; HYDROCODONE (a set a KRISHNA petr fen; kathleen droe KOE done) is a pain reliever. It is used to treat mild to moderate pain. How should I use this medicine? Take this medicine by mouth. Swallow it with a full glass of water. Follow the directions on the prescription label. If the medicine upsets your stomach, take the medicine with food or milk. Do not take more than you are told to take. Talk to your bowling ball finisher regarding the use of this medicine in children. This medicine is not approved for use in children. What side effects may I notice from receiving this medicine? Side effects that you should report to your doctor or health hospice spiritual care coordinator as soon as possible: allergic reactions like skin rash, itching or hives, swelling of the face, lips, or tongue breathing problems confusion feeling faint or lightheaded, falls stomach pain yellowing of the eyes or skin Side effects that usually do not require medical attention (report to your doctor or health hospice spiritual care coordinator if they continue or are bothersome): nausea, vomiting stomach upset What may interact with this medicine? alcohol antihistamines isoniazid medicines for depression, anxiety, or psychotic disturbances medicines for sleep muscle relaxants naltrexone narcotic medicines (opiates) for pain phenobarbital ritonavir tramadol What if I miss a dose? If you miss a dose, take it as soon as you can. If it is almost time for your next dose, take only that dose. Do not take double or extra doses. Where should I keep my medicine? Keep out of the reach of children. This medicine can be abused. Keep your medicine in a safe place to protect it from theft. Do not share this medicine with anyone. Selling or giving away this medicine is dangerous and against the law. Store at room temperature between 15 and 30 degrees C (59 and 86 degrees F). Protect from light. Keep container tightly closed. Throw away any unused medicine after the expiration date. Discard unused medicine and used packaging carefully. Pets and children can be harmed if they find used or lost packages. What should I tell my health care provider before I take this medicine? They need to know if you have any of these conditions: brain tumor Crohn's disease, inflammatory bowel disease, or ulcerative colitis drink more than 3 alcohol-containing drinks per day drug abuse or addiction head injury heart or circulation problems kidney disease or problems going to the bathroom liver disease lung disease, asthma, or breathing problems an unusual or allergic reaction to acetaminophen, hydrocodone, other opioid analgesics, other medicines, foods, dyes, or preservatives or trying to get breast-feeding What should I watch for while using this medicine? Tell your doctor or health hospice spiritual care coordinator if your pain does not go away, if it gets worse, or if you have new or a different type of pain. You may develop tolerance to the medicine. Tolerance means that you will need a higher dose of the medicine for pain relief. Tolerance is normal and is expected if you take the medicine for a long time. Do not suddenly stop taking your medicine because you may develop a severe reaction. Your body becomes used to the medicine. This does NOT mean you are addicted. Addiction is a behavior related to getting and using a drug for a non-medical reason. If you have pain, you have a medical reason to take pain medicine. Your doctor will tell you how much medicine to take. If your doctor wants you to stop the medicine, the dose will be slowly lowered over time to avoid any side effects. You may get drowsy or dizzy when you first start taking the medicine or change doses. Do not drive, use machinery, or do anything that may be dangerous until you know how the medicine affects you. Stand or sit up slowly. There are different types of narcotic medicines (opiates) for pain. If you take more than one type at the same time, you may have more side effects. Give your health care provider a list of all medicines you use. Your doctor will tell you how much medicine to take. Do not take more medicine than directed. Call emergency for help if you have problems breathing. The medicine will cause constipation. Try to have a bowel movement at least every 2 to 3 days. If you do not have a bowel movement for 3 days, call your doctor or health hospice spiritual care coordinator. Too much acetaminophen can be very dangerous. Do not take Tylenol (acetaminophen) or medicines that contain acetaminophen with this medicine. Many non-prescription medicines contain acetaminophen. Always read the labels carefully. You have been given the following additional information: Abdominal Pain, Unknown Cause, (Male) Hernia (Inguinal, Ventral, Umbilical) Hydrocodone Bitartrate, Acetaminophen Oral tablet (Electronically signed by Dustin Johnson Dr. 05/16/2016 9:11)
== END 2016-05-11 14:30 | disposition home or self-care (01) ==
LOC: ED SRH 10:41
DX: R10.30 Lower abdominal pain, unspecified (principal); K40.91 Unilateral inguinal hernia, without obstruction or gangrene, recurrent; Z79.01 Long term (current) use of anticoagulants
CPT/HCPCS: 90004; 90100; 94060; 95059

== ENCOUNTER 2016-07-18 13:44 | Outpatient (CLI) | payer OTHER, MEDICARE ==
--- NOTE | 2016-07-18 15:16 | DIAGNOSTIC IMAGING REPORT ---
PROCEDURE: US BREAST ULTRASOUND - LEFT INDICATION: Left breast pain and tenderness. TECHNIQUE: High resolution richards scale and color Doppler sonographic images of the left breast (with limited comparison images of the right breast). COMPARISON: None. FINDINGS: There is a 1.2 cm hypoechoic area in the retroareolar region of the right breast consistent with benign gynecomastia. IMPRESSION: 1. Findings are consistent with benign left gynecomastia. 2. Findings discussed with the patient. RESULT CODE: 2- Benign finding(s). A. A negative report should not delay biopsy if a dominant or clinically suspicious mass is present. 10-15% of cancers are not identified by x-ray. B. A negative report may reinforce clinical impression. C. Adenosis and dense breasts may obscure an underlying neoplasm. D. False positive reports average 6-10%. E.. A yearly screening mammogram is recommended. A reminder letter will be scheduled.
== END 2016-07-18 23:00 ==
LOC: US SRH 13:44
DX: N62 Hypertrophy of breast (principal)